=== PATIENT | male | born 1970 | race Caucasian/White ===

== ENCOUNTER 2017-06-29 14:52 | Emergency (ER) | payer OTHER ==
[~2017-06-29] VITALS: Ht 182.9 cm; Wt 109.0 kg
[2017-06-29 14:56] VITALS: BP 167/89; PULSE 79; RESP 16; TEMP 98.4; O2SAT 96
[2017-06-29] MEDS ORDERED: LISI10TA PO (15:16)
[2017-06-29] MEDS ORDERED: IBUPROFEN 800 MG TAB PO ONE (15:30)
[2017-06-29] MEDS ORDERED: TETANUS/DIPHTHERIA TOXOID ADULT 0.5 ML VIAL IM ONE (15:30)
[2017-06-29] MEDS ORDERED: BUPIVACAINE HCL PF 0.5% 10 ML VIAL INFIL ONE (15:30)
[2017-06-29] MEDS ORDERED: LIDOCAINE HCL 1% 50 ML VIAL INFIL ONE (15:30)
--- NOTE | 2017-06-29 15:30 | PD ---
HPI Chief Complaint: Injury Time Seen by Provider: 15:12 Travel History International Travel<30 days: No Contact w/Intl Traveler<30days: No Traveled to known affect area: No History of Present Illness HPI 47-year-old male presents to the emergency Department with complaint of laceration to the tip of his right third finger from a band saw today. Was sent by urgent care. Tetanus status unknown. Denies anticoagulant therapy. Denies paresthesias, loss of sensation, decreased range of motion to the affected finger. Says the tip of the finger is missing. Bleeding is controlled and bandages in place. He has not taken any medications to symptoms. Rates pain 7/10. Describes it as a throbbing sensation. No known allergies. History of hypertension. Has no other medical complaints. No other modifying factors or associated signs and symptoms. PFSH Past Medical History Hx Anticoagulant Therapy: No Cardiovascular Problems: Yes (HTN) Diabetes: No Hypertension: Yes Medical other: Yes (Karen VERA) Tetanus Vaccination: > 5 Years Influenza Vaccination: Yes Social History Alcohol Use: Yes (ONCE A WEEK OR LESS) Tobacco Use: Yes (3/4 PPD) Substance Use: No Allergies-Medications (Allergen,Severity, Reaction): Coded Allergies: No Known Allergies (Unverified , 06/29/17) Reported Meds & Prescriptions Reported Meds & Active Scripts Active Mccook (Hydrocodone-Acetaminophen) 5 Mg-325 Mg Tab 1-2 Tab PO Q6H PRN Ibuprofen 800 Mg Tab 800 Mg PO Q6HR PRN Clindamycin (Clindamycin HCl) 150 Mg Cap 300 Mg PO Q8HR 10 Days Reported Lisinopril-Hctz 10-12.5 Mg Tab 1 Tab PO DAILY Review of Systems Except as stated in HPI: all other systems reviewed are Neg Physical Exam Narrative GENERAL: Well-nourished, well-developed male patient, in no acute distress SKIN: Warm and dry. Ventral aspect of the tip of the right third finger is partially amputated, including approximately half of the nailbed. Bleeding controlled. Finger with full range of motion at all finger joints and sensory intact. HEAD: Atraumatic. Normocephalic. EYES: Pupils equal and round. No scleral icterus. No injection or drainage. ENT: Mucosa pink and moist. Airway patent. NECK: Trachea midline. CARDIOVASCULAR: Regular rate. RESPIRATORY: No accessory muscle use. GASTROINTESTINAL: Obese. MUSCULOSKELETAL: No obvious deformities. No clubbing. No cyanosis. No edema. NEUROLOGICAL: Awake and alert. Oriented 3. No obvious cranial nerve deficits. Motor grossly within normal limits. Normal speech. PSYCHIATRIC: Appropriate mood and affect; insight and judgment normal. Data Data Last Documented VS Vital Signs Date Time Temp Pulse Resp B/P (MAP) Pulse Ox O2 Delivery O2 Flow Rate FiO2 06/29/17 14:56 98.4 79 16 167/89 (115) 96 Orders Orders Finger (Zug2bas) (06/29/17 ) Bupivacaine Pf 0.5% Inj (Marcaine Pf 0.5 (06/29/17 15:30) Lidocaine 1% Inj (50 Ml) (Xylocaine 1% I (06/29/17 15:30) Tetanus/Diphtheria Tox Adult (Tetanus/Di (06/29/17 15:30) Ibuprofen (Motrin) (06/29/17 15:30) Gelatin 12 Mm/7 Mm Top (Gelfoam 12 Mm/7 (06/29/17 16:30) Ed Discharge Order (06/29/17 17:19) Splint Or Brace Apply/Monitor (06/29/17 17:19) Finger Splint (06/29/17 ) MDM Medical Decision Making Medical Screen Exam Complete: Yes Emergency Medical Condition: Yes Medical Record Reviewed: Yes Differential Diagnosis Avulsion, amputation, laceration Narrative Course 47-year-old male with an avulsion to the tip of the right third finger including part of the nailbed. Tetanus updated in the ER. Patient is driving so I ordered ibuprofen for pain. Right third finger x-ray ordered. 1629: Right third finger x-rayed concludes: Finger X-Ray 06/29/17 0000 Signed Impressions: Service Date/Time: Thursday, June 29, 2017 15:24 - CONCLUSION: 1. No acute fracture or radiopaque foreign bodies. Aleksandr Crane MD Discussed xray findings with the patient. See my procedure note for skin avulsion repair. Bactrim, Mccook, ibuprofen prescribed for home. Patient to follow up with hand surgeon. Instructed patient to follow up with primary care provider. Patient verbalizes understanding and agreement with treatment plan. Patient is medically cleared and stable for discharge. Discussed reasons to return to the emergency department. Patient agrees with treatment plan. The patients vital signs are stable and the patient is stable for outpatient follow- up and treatment. Patient discharged home, stable and in no acute distress. Procedures Procedure Narrative LACERATION LOCATION: Ventral tip of the right third finger LENGTH: 1 cm in diameter A cautery pen was used to cauterize the skin avulsion to the tip of the finger and Gelfoam was used also. REPAIR: The area of the laceration was prepped with Betadine and sterile water. The finger was digitally blocked with 1% lidocaine and 0.5% bupivacaine. The wound was copiously irrigated and explored without evidence of foreign body , tendon injury or neurovascular injury. The wound was closed using cauterization and Gelfoam. This was a single layer repair. A sterile dressing was applied. The patient was advised to keep the dressing clean and dry. Patient tolerated the procedure well. Diagnosis Primary Impression: Avulsion of skin of finger Qualified Codes: S61.209A - Unspecified open wound of unspecified finger without damage to nail, initial encounter Referrals: Hand Surgeon Primary Care Physician Patient Instructions: Acute Wound Care (DC), General Instructions, Skin Avulsion (ED) Additional Instructions: Do not change the current dressing for 48 hours After 48 hours change the dressing once or twice daily or as needed Antibiotics as prescribed Ibuprofen or Tylenol as instructed and as needed for pain and inflammation Topical antibiotic ointment as directed and as needed for wound care Follow-up with hand surgeon Follow-up with primary care provider Return to the emergency department immediately with worsening of symptoms Med/Other Pt SpecificInfo: Prescription(s) given Scripts Hydrocodone-Acetaminophen (Mccook) 5 Mg-325 Mg Tab 1-2 TAB PO Q6H Y for PAIN, #28 TAB 0 Refills Prov: Jill Blanco 06/29/17 Ibuprofen (Ibuprofen) 800 Mg Tab 800 MG PO Q6HR Y for PAIN, #30 TAB 0 Refills Prov: Jill Blanco 06/29/17 Clindamycin (Clindamycin) 150 Mg Cap 300 MG PO Q8HR for Infection for 10 Days, CAP 0 Refills Prov: Jill Blanco 06/29/17 Disposition: 01 DISCHARGE HOME Condition: Stable Jill Blanco Jun 29, 2017 15:30
--- NOTE | 2017-06-29 16:12 | RADRPT ---
EXAM DATE/TIME: 06/29/2017 15:24 [facility] COMPARISON: No previous studies available for comparison. INDICATIONS : Right hand, third digit pain after being cut with a meat cutting block repairer. MEDICAL HISTORY : None. SURGICAL HISTORY : None. ENCOUNTER: Initial ACUITY: 1 day PAIN SCORE: 8/10 LOCATION: Right hand, distal third digit. FINDINGS: Significant soft tissue injury to the tip of the middle finger. Underlying osseous structures are int act without evidence for acute bony fracture or focal bony destruction. No radiopaque foreign bodies. Joint spaces are maintained. CONCLUSION: 1. No acute fracture or radiopaque foreign bodies. Aleksandr Crane MD on June 29, 2017 at 16:09 Board Certified Radiologist. This report was verified electronically.
[2017-06-29] MEDS ORDERED: GELATIN 12 MM/7 MM FOAM TOPICAL ONE (16:30)
[2017-06-29] MEDS ORDERED: CLIN150C14 PO (16:34)
[2017-06-29] MEDS ORDERED: NORC5TAB PO (16:34)
[2017-06-29] MEDS ORDERED: IBUP1TAB7 PO (16:34)
== END 2017-06-29 17:55 | disposition home or self-care (01) ==
LOC: PHEFT 14:52
DX: S61.302A Unspecified open wound of right middle finger with damage to nail, initial encounter (principal); I10 Essential (primary) hypertension; F17.200 Nicotine dependence, unspecified, uncomplicated; Z23 Encounter for immunization; Z87.39 Personal history of other diseases of the musculoskeletal system and connective tissue; Z72.89 Other problems related to lifestyle; W45.8XXA Other foreign body or object entering through skin, initial encounter; W29.8XXA Contact with other powered hand tools and household machinery, initial encounter
CPT/HCPCS: 12001; 73140; 90471; 90714